=== PATIENT | female | born 1970 | race Caucasian/White ===

== ENCOUNTER 2018-05-20 13:31 | Emergency (ER) | payer MEDICAID ==
[~2018-05-20] VITALS: Ht 162.6 cm; Wt 53.3 kg
== END 2018-05-20 15:07 | disposition home or self-care (01) ==
LOC: ED 15:00
DX: S93.432A Sprain of tibiofibular ligament of left ankle, initial encounter (principal); S93.431A Sprain of tibiofibular ligament of right ankle, initial encounter; M19.071 Primary osteoarthritis, right ankle and foot; F17.210 Nicotine dependence, cigarettes, uncomplicated; W01.0XXA Fall on same level from slipping, tripping and stumbling without subsequent striking against object, initial encounter; Y93.89 Activity, other specified; Y92.410 Unspecified street and highway as the place of occurrence of the external cause; Y99.8 Other external cause status
CPT/HCPCS: 99283